=== PATIENT | female | born 1975 | race Caucasian/White ===

== ENCOUNTER 2019-07-25 06:51 | Day surgery (SDC) | payer OTHER ==
[~2019-07-25] VITALS: Ht 160 cm; Wt 95.0 kg
[2019-07-25] MEDS ORDERED: BUPIVACAINE/PF 0.5% ONE (06:52)
[2019-07-25] MEDS ORDERED: EPINEPHRINE 1 MG/ML, 1ML ONE (06:52)
[2019-07-25 07:13] VITALS: BP 124/77
[2019-07-25] MEDS ORDERED: LACTATED RINGERS 1,000 ML IV SCH (07:15)
[2019-07-25] MEDS ORDERED: NONE PER PT (07:16)
[2019-07-25] MEDS ORDERED: MIDAZOLAM 1 MG/ML, 2ML ONE (07:24)
[2019-07-25] MEDS ORDERED: FENTANYL PF 250 MCG/5ML ONE (07:25)
[2019-07-25] MEDS ORDERED: CEFOTETAN PMX 2GM/50ML 50 ML ONE (07:27)
[2019-07-25] MEDS ORDERED: KETOROLAC 30 MG/1 ML ONE (07:27)
[2019-07-25] MEDS ORDERED: ROCURONIUM 10MG/ML,5ML ONE (07:29)
[2019-07-25] MEDS ORDERED: DEXAMETHASONE 4 MG/ML, 1ML ONE (07:29)
[2019-07-25] MEDS ORDERED: GLYCOPYRROLATE 0.2MG/1ML, 5ML ONE (07:29)
[2019-07-25] MEDS ORDERED: NEOSTIGMINE 1 MG/ML, 10ML ONE (07:29)
[2019-07-25] MEDS ORDERED: PROPOFOL 10 MG/ML, 20ML ONE (07:29)
[2019-07-25] MEDS ORDERED: ONDANSETRON 2MG/ML, 2ML ONE (07:29)
[2019-07-25] MEDS ORDERED: GABAPENTIN 300 MG CAPSULE PO ONE (07:30)
[2019-07-25] MEDS ORDERED: ACETAMINOPHEN 500 MG TABLET PO ONE (07:30)
[2019-07-25] MEDS ORDERED: SCOPOLAMINE PATCH, 1.5MG PATCH.TD72 TD ONE (07:30)
[2019-07-25] MEDS ORDERED: LEVO100T5 PO (07:37)
[2019-07-25] MEDS ORDERED: HALOPERIDOL 5 MG/ML IV PRN (08:00)
[2019-07-25] MEDS ORDERED: hydrALAzine 20 MG/ML, 1ML IV PRN (08:00)
[2019-07-25] MEDS ORDERED: PROMETHAZINE 25 MG/ML, 1ML IV PRN (08:00)
[2019-07-25] MEDS ORDERED: LABETALOL 5MG/ML, 20ML IV PRN (08:00)
[2019-07-25] MEDS ORDERED: HYDROmorphone 2 MG/ML, 1ML IVPush PRN (08:00)
[2019-07-25] MEDS ORDERED: OXYcodone 5 MG/5 ML ORAL.SOL UDC PO PRN (08:00)
[2019-07-25] MEDS ORDERED: MEPERIDINE/PF 25MG/ML,1ML IVPush PRN (08:00)
[2019-07-25] MEDS ORDERED: MORPHINE SULFATE 4 MG/ML, 1ML IVPush PRN (08:00)
[2019-07-25] MEDS ORDERED: BUPIVACAINE/PF-EPI 0.5% 1:200K INFIL ONE (08:12)
[2019-07-25] MEDS ORDERED: SUGAMMADEX 200 MG/2 ML IVPush ONE (08:44)
[2019-07-25] MEDS ORDERED: OXYcodone 5 MG/5 ML ORAL.SOL UDC ONE (09:07)
[2019-07-25] MEDS ORDERED: FENTANYL PF 100 MCG/2ML ONE (09:07)
[2019-07-25] MEDS: FENTANYL PF 100 MCG/2ML IV PRN ×2 (09:08→09:36)
[2019-07-25] MEDS ORDERED: PROMETHAZINE 25 MG/ML, 1ML ONE (09:12)
[2019-07-25] MEDS ORDERED: HALOPERIDOL 5 MG/ML ONE (09:30)
== END 2019-07-25 12:55 | disposition home or self-care (01) ==
LOC: OUT 06:51
PROVIDERS: ATTEND Student in an Organized Health Care Education/Training Program
DX: K80.10 Calculus of gallbladder with chronic cholecystitis without obstruction (principal); E03.9 Hypothyroidism, unspecified; E78.00 Pure hypercholesterolemia, unspecified; Z79.890 Hormone replacement therapy
CPT/HCPCS: 47562; 88304; J0171; J1100; J1630; J1885; J2250; J2405; J2550; J2704; J2710; J3010; J3490; J7120